=== PATIENT | male | born 1940 | race Caucasian/White ===

== ENCOUNTER 2016-05-29 10:54 | Emergency (ER) | payer OTHER ==
[~2016-05-29] VITALS: Ht 180.3 cm; Wt 81.7 kg
[~2016-05-29 10:54] MED LIST: AMBIEN10 MG PO; CALCIUM 500 MG1 EACH PO; CARVEDILOL3.125 MG PO; COUMADIN,JANTOVE5 MG PO; COUMADIN5 MG PO; Calcium Carbonate/Vi PO; Calcium PO; Coreg PO; FEOSOL325 MG PO; FISH OIL 1,2001 EAC4 PO; FOSAMAX70 MG PO; HYDROCHLOROTH12.5 M3 PO; HYDROCHLOROTHIA25 MG PO; HYDROCODON-ACE1 EAC7 PO; Hydrodiuril,Oretic,E PO; IRON325 M1 PO; LIPITOR10 MG PO; LORTAB 5-325 M1 EACH PO; OCUVITE LUTEIN1 EACH PO; OCUVITE SOFTGE1 EACH PO; Omega III EPA + DHA PO; PRINIVIL20 MG PO; SENOKOT S,PE1 TABLET PO; TYLENOL EXTRA500 MG PO; VITAMIN D32000 UNIT PO; VITAMIN D35000 UNIT PO; Vicodin,Lortab 5/500 PO; Zestril,Prinivil PO
[2016-05-29 12:20] LABS: CREATININE 0.6 mg/dL (0.6-1.3); POTASSIUM 3.9 mEq/L (3.7-5.4)
[2016-05-29 12:25] LABS: HEMATOCRIT 49.8 % (38.0-50.0); MCH 32.3 PG (29.0-34.0); MCHC 34.1 G/DL (30.0-36.0); MCV 94.7 FL (86-99); PLATELET COUNT 137 K/uL (156-360); RBC DIS.WIDTH-CV 15.1 % (11.8-14.6); RBC DIS.WIDTH-SD 50.7 % (39-53); RED BLOOD COUNT 5.26 M/uL (4.00-5.50); WHITE BLOOD COUNT 6.6 K/uL (4.1-10.2)
[2016-05-29 12:33] LABS: CHLORIDE 107 mEq/L (99-109); POTASSIUM 4.2 mEq/L (3.7-5.4); SODIUM 141 mEq/L (136-147)
[2016-05-29 12:35] LABS: GLUCOSE 113 mg/dL (70-99)
[2016-05-29 12:36] LABS: ANION GAP 12 MEQ/L (2-14)
[2016-05-29 12:37] LABS: TOTAL BILIRUBIN 5.3 mg/dL (0.0-1.0)
[2016-05-29 12:38] LABS: ALKALINE PHOSPHATASE 69 IU/L (3-129)
[2016-05-29 12:39] LABS: GFR ESTIMATE (CALCULATED) > 59 mL/min/
[2016-05-29 12:40] LABS: UREA NITROGEN (BUN) 23 mg/dL (9-23)
[2016-05-29 13:18] LABS: ADD MIUA? NO; BILIRUBIN NEGATIVE; BLOOD NEGATIVE; COLOR DK YELLOW ((YELLOW)); GLUCOSE (STRIP) NEGATIVE; KETONES TRACE; LEUKOCYTES NEGATIVE; NITRITE NEGATIVE; PROTEIN (STRIP) NEGATIVE; UCUL ADDED? NO
[2016-05-29 13:31] LABS: SPECIFIC GRAVITY 1.098 (1.000-1.030)
[2016-05-29 13:35] LABS: PROTHROMBIN TIME 43.3 (9.2-11.2); PTT 38.5 (25-32)
[2016-05-29 13:37] LABS: INTER. NORMALIZED RATIO 4.1
[2016-05-29] MEDS ORDERED: ZOFRAN ODT4 MG PO (14:38)
[2016-05-29 15:00] VITALS: BP 150/98
== END 2016-05-29 15:02 | disposition home or self-care (01) ==
LOC: EME 10:54
PROVIDERS: Emergency Medicine
DX: K52.9 Noninfective gastroenteritis and colitis, unspecified (principal); N28.89 Other specified disorders of kidney and ureter; I10 Essential (primary) hypertension; Z85.828 Personal history of other malignant neoplasm of skin; Z95.0 Presence of cardiac pacemaker; Z96.641 Presence of right artificial hip joint; Z96.653 Presence of artificial knee joint, bilateral; Z79.01 Long term (current) use of anticoagulants
CPT/HCPCS: 74177; 80047; 80053; 81003; 83605; 85027; 85610; 85730; 99281; 99284; J7030

== ENCOUNTER 2017-02-08 07:33 | Day surgery (SDC) | payer OTHER ==
[~2017-02-08] VITALS: Ht 180.3 cm; Wt 88.9 kg
[~2017-02-08 07:33] MED LIST changes: +LISINOPRIL40 MG PO; +OMEPRAZOLE40 M1 PO; -PRINIVIL20 MG PO; +ZOCOR10 MG PO; +ZOFRAN ODT4 MG PO
== END 2017-02-08 15:17 | disposition home or self-care (01) ==
LOC: CATH 07:33
DX: I42.0 Dilated cardiomyopathy (principal); I25.10 Atherosclerotic heart disease of native coronary artery without angina pectoris; I49.5 Sick sinus syndrome; I48.0 Paroxysmal atrial fibrillation; I10 Essential (primary) hypertension; R53.82 Chronic fatigue, unspecified; Z95.0 Presence of cardiac pacemaker; Z88.2 Allergy status to sulfonamides
CPT/HCPCS: C1769; C1887; J1644; J2250; J3010